=== PATIENT | male | born 1960 | race African-American/Black ===

== ENCOUNTER 2018-08-17 23:39 | Inpatient (IN) | payer SELFPAY ==
--- NOTE | 2018-08-18 00:53 | RADIOLOGY REPORT (SQ) ---
EXAM DESCRIPTION: XR HIP 2 OR MORE VIEWS COMPLETED DATE/TME: 08/18/2018 00:20 CLINICAL HISTORY: 57 years, Male, INJURY COMPARISON: None. NUMBER OF VIEWS: 2 TECHNIQUE: AP pelvis and single view left hip LIMITATIONS: None. FINDINGS: Comminuted mildly displaced intertrochanteric fracture deformity of the left hip. No dislocation. Mild varus angulation. IMPRESSION: Comminuted, mildly displaced and angulated intertrochanteric fracture of the left hip copyright 2010 [employer]- All Rights Reserved
--- NOTE | 2018-08-18 00:54 | RADIOLOGY REPORT (SQ) ---
EXAM DESCRIPTION: XR RIBS UNILATERAL WITH CHEST COMPLETED DATE/TME: 08/18/2018 00:00 CLINICAL HISTORY: 57 years, Male, INJURY COMPARISON: None. NUMBER OF VIEWS: 5 TECHNIQUE: AP chest and 4 views of the left ribs LIMITATIONS: None. FINDINGS: Heart size is normal. Osteopenia. Lungs are hyperinflated but clear. No pneumothorax. Old fracture deformities of the posterior left sixth and seventh ribs. Negative for acute left rib fracture. Soft tissues are unremarkable. IMPRESSION: No acute left rib fracture. Osteopenia. Remote fractures of the posterior left sixth and seventh ribs. Lungs are hyperinflated but clear copyright 2010 [employer] All Rights Reserved
[2018-08-18] MEDS ORDERED: HYDROMORPHONE HCL INJ/PF 2 MG/ML AMPULE IV ONE ×2 (01:00→02:05)
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
[2018-08-18 01:10] LABS: ABSOLUTE LYMPHOCYTES (AUTO) 0.8 10^3/uL (0.5-4.7); ABSOLUTE MONOCYTES (AUTO) 0.3 10^3/uL (0.1-1.4); EOSINOPHILS % (AUTO) 0.1 % (0-6); PLATELET COUNT 283 10^3/uL (150-450); RED CELL DISTRIBUTION WIDTH 12.9 % (11.5-14.0); TOTAL CELLS COUNTED % (AUTO) 100 %
[2018-08-18 01:12] LABS: ALANINE AMINOTRANSFERASE 17 U/L (21-72); ALKALINE PHOSPHATASE 65 U/L (38-126); ANION GAP 10 (5-19); ASPARTATE AMINO TRANSFERASE 41 U/L (17-59); BILIRUBIN,DIRECT 0.2 mg/dL (0.0-0.4); BILIRUBIN,TOTAL 0.4 mg/dL (0.2-1.3); BLOOD UREA NITROGEN 7 mg/dL (7-20); CALCIUM 8.9 mg/dL (8.4-10.2); CARBON DIOXIDE 22 mmol/L (22-30); CHLORIDE 105 mmol/L (98-107); GLUCOSE 106 mg/dL (75-110); POTASSIUM 4.2 mmol/L (3.6-5.0); SODIUM 136.8 mmol/L (137-145); TOTAL PROTEIN 7.5 g/dL (6.3-8.2)
[2018-08-18 01:20] LABS: ABSOLUTE NEUT (AUTO) 5.3 10^3/uL (1.7-8.2); BASOPHILS % (AUTO) 0.5 % (0-2); HEMATOCRIT 36.8 % (37.9-51.0); HEMOGLOBIN 12.6 g/dL (13.5-17.0); LYMPHOCYTES % (AUTO) 12.9 % (13-45); MEAN CORPUSCULAR HEMOGLOBIN 32.1 pg (27.0-33.4); MEAN CORPUSCULAR HGB CONC 34.3 g/dL (32.0-36.0); MEAN CORPUSCULAR VOLUME 94 fl (80-97); MONOCYTES % (AUTO) 4.4 % (3-13); RED BLOOD COUNT 3.94 10^6/uL (4.35-5.55); SEGMENTED NEUTROPHILS % (AUTO) 82.1 % (42-78); WHITE BLOOD COUNT 6.4 10^3/uL (4.0-10.5)
[2018-08-18 01:26] LABS: INTERNATIONAL RATION (INR) 0.96; PARTIAL THROMBOPLASTIN TIME 28.5 SEC (23.5-35.8); PROTHROMBIN TIME 13.3 SEC (11.4-15.4)
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
[2018-08-18] MEDS ORDERED: RINGERS SOLUTION,LACTATED 1,000 ML IV ONE (03:53)
[2018-08-18] MEDS: MORPHINE SULFATE 10 MG/ML INJ IV PRN ×4 (07:36→22:36)
[2018-08-18] MEDS ORDERED: DEXTROSE 40% GEL 15 GM TUBE PO PRN ×2 (08:33)
[2018-08-18] MEDS ORDERED: GLUCAGON,HUMAN RECOMB 1 MG INJ SUBCUT PRN (08:33)
[2018-08-18] MEDS ORDERED: DEXTROSE 50%-WATER 25 GM/50 ML DISP.SYRIN IV PRN ×2 (08:33)
[2018-08-18] MEDS ORDERED: ONDANSETRON 4 MG TAB.RAPDIS PO PRN (08:44)
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
[2018-08-18] MEDS: LORAZEPAM 1 MG TABLET (TAPER DOSING) PO SCH ×3 (10:12→22:36)
[2018-08-18] MEDS: FOLIC ACID 1 MG TABLET PO SCH (10:13)
[2018-08-18] MEDS: RINGERS SOLUTION,LACTATED 1,000 ML IV PRN (14:46)
[2018-08-18] MEDS: IBUPROFEN 800 MG in NORMAL SALINE 250 ML IV SCH ×2 (15:00→22:27)
[2018-08-18] MEDS: NORMAL SALINE 1000 ML 1,000 ML with POTASSIUM CHLORIDE 20 MEQ, MAGNESIUM SULFATE 8 MEQ,... IV SCH ×5 (17:51)
--- NOTE | 2018-08-19 00:57 | EKG REPORT ---
SEVERITY:- ABNORMAL ECG - SINUS RHYTHM ST ELEVATION, CONSIDER EARLY REPOLARISATION CHANGES : Confirmed by: Genie Zendejas MD 19-Aug-2018 00:56:21
[2018-08-19] MEDS: MORPHINE SULFATE 10 MG/ML INJ IV PRN ×3 (01:44→17:57)
[2018-08-19] MEDS: RINGERS SOLUTION,LACTATED 1,000 ML IV PRN ×2 (01:50→10:39)
[2018-08-19] MEDS ORDERED: TRANEXAMIC ACID INJ/PF 1,000 MG/10 ML SDV IV PRN (05:00)
[2018-08-19] MEDS ORDERED: CEFAZOLIN 2 GM/D5W RTU 2 GM/50 ML RTUPB IV PRN (05:00)
[2018-08-19] MEDS: IBUPROFEN 800 MG in NORMAL SALINE 250 ML IV SCH ×3 (05:40→23:53)
[2018-08-19] MEDS: LORAZEPAM 1 MG TABLET (TAPER DOSING) PO SCH ×3 (05:41→19:07)
--- NOTE | 2018-08-19 07:21 | PDOC PROGRESS REPORT ---
Subjective Progress Note for:: 08/19/18 Reason For Visit: FRACTURE OF HIP Left intratrochanteric femur fracture Physical Exam Vital Signs: Temp Pulse Resp BP Pulse Ox 37.1 C 49 L 17 123/84 100 08/18/18 23:31 08/18/18 23:31 08/18/18 23:31 08/18/18 23:31 08/18/18 23:31 Intake & Output 08/18/18 08/19/18 08/20/18 06:59 06:59 06:59 Intake Total 0 2989 Output Total 0 900 Balance 0 2089 Weight 68 kg 65.6 kg General appearance: PRESENT: mild distress, thin Head exam: PRESENT: normocephalic Respiratory exam: PRESENT: unlabored Cardiovascular exam: PRESENT: RRR Pulses: PRESENT: +1 pedal pulses bilateral Vascular exam: PRESENT: normal capillary refill GI/Abdominal exam: PRESENT: soft Rectal exam: PRESENT: deferred Musculoskeletal exam: PRESENT: other - Neurovascular examination of the left foot is intact. Neurological exam: PRESENT: alert, awake, oriented to person, oriented to place , oriented to time, oriented to situation. ABSENT: motor sensory deficit Psychiatric exam: PRESENT: appropriate affect, normal mood. ABSENT: homicidal ideation, suicidal ideation Skin exam: PRESENT: dry, intact, warm. ABSENT: cyanosis, rash Results Impressions: Ribs w/Chest X-Ray 08/18/18 00:00 IMPRESSION: No acute left rib fracture. Osteopenia. Remote fractures of the posterior left sixth and seventh ribs. Lungs are hyperinflated but clear copyright 2010 [employer]- All Rights Reserved Hip X-Ray 08/18/18 00:20 IMPRESSION: Comminuted, mildly displaced and angulated intertrochanteric fracture of the left hip copyright 2010 [employer]- All Rights Reserved Femur X-Ray 08/18/18 00:58 IMPRESSION: Intertrochanteric fracture deformity. Osteopenia copyright 2010 [employer]- All Rights Reserved Lumbar Spine CT 08/18/18 00:58 IMPRESSION: Minor degenerative change, at L4-5 and L5-S1. TECHNICAL DOCUMENTATION: Quality ID # 436: Final reports with documentation of one or more dose reduction techniques (e.g., Automated exposure control, adjustment of the mA and/or kV according to patient size, use of iterative reconstruction technique) copyright 2010 [employer]- All Rights Reserved Status: Imported from PACS Assessment & Plan - Diagnosis (1) Intertrochanteric fracture of left femur Qualifiers: Encounter type: initial encounter Fracture type: closed Fracture alignment: displaced Qualified Code(s): S72.142A - Displaced intertrochanteric fracture of left femur, initial encounter for closed fracture Is this a current diagnosis for this admission?: Yes Plan: Plan for an open reduction internal fixation under choice anesthesia today. - Time Time Spent with patient: 15-24 minutes Anticipated discharge: Home with Homehealth Within: within 24 hours
[2018-08-19] MEDS: FOLIC ACID 1 MG TABLET PO SCH (10:36)
[2018-08-19] MEDS ORDERED: FENTANYL CITRATE INJ/PF 100 MCG/2 ML AMPUL ONE ×2 (12:27→14:32)
[2018-08-19] MEDS ORDERED: MIDAZOLAM 2 MG/2 ML INJ ONE (12:27)
[2018-08-19] MEDS ORDERED: PROPOFOL INJ 200 MG/20 ML VIAL IV ONE (12:27)
[2018-08-19] MEDS ORDERED: ACETAMINOPHEN 0 MG/0 ML RTUPB IV ONE (12:27)
[2018-08-19] MEDS ORDERED: HYDROMORPHONE HCL INJ/PF 2 MG/ML AMPULE ONE (12:27)
[2018-08-19] MEDS ORDERED: CEFAZOLIN INJ 1 GM VIAL ONE (12:59)
[2018-08-19] MEDS ORDERED: KETAMINE HCL INJ 500 MG/10 ML VIAL ONE (13:14)
[2018-08-19] MEDS ORDERED: EPHEDRINE SULFATE INJ 50 MG/1 ML AMPULE ONE (13:38)
[2018-08-19] MEDS ORDERED: PROMETHAZINE HCL INJ 25 MG/1 ML VIAL IV PRN (13:59)
[2018-08-19] MEDS ORDERED: DIPHENHYDRAMINE HCL 50 MG/ML VIAL IV PRN (13:59)
[2018-08-19] MEDS ORDERED: FENTANYL CITRATE INJ/PF 100 MCG/2 ML AMPUL IV PRN ×2 (13:59)
--- NOTE | 2018-08-19 14:03 | Operative Report ---
Operative Report DATE OF SURGERY: 08/19/18 PREOPERATIVE DIAGNOSIS: Left intratrochanteric femur fracture OPERATION: Open reduction internal fixation left intratrochanteric femur fracture SURGEON: PATSY TERRY ANESTHESIA: Spinal ESTIMATED BLOOD LOSS: 100 PROCEDURE: With the patient supine on the fracture table the left lower extremity hindquarter prepped and draped in a sterile fashion. Under fluoroscopic guidance a pin is placed percutaneously down through the greater trochanter into the proximal femoral metadiaphysis. A combined reamer was then used to fashion a cortical opening. These are removed and a ball-tipped guide betsey was placed down the femur. Femoral length is measured to be 440 mm. Subsequently a Saundra gamma 3 nail, 125 degrees x 11 mm x 420 mm is advanced over the ball- tipped guide betsey for approximate for a proximal interlock that is central in the femoral neck. Subsequently 95 mm proximal interlock is placed. A single 47.5 mm distal interlock is placed. The wounds irrigated. The wounds are closed using Vicryl followed by an norman. A sterile compressive dressing is applied and patient's return to PACU in satisfactory condition.
[2018-08-19] MEDS ORDERED: ONDANSETRON 4 MG TAB.RAPDIS SL PRN (14:28)
--- NOTE | 2018-08-19 15:57 | RADIOLOGY REPORT (SQ) ---
EXAM DESCRIPTION: HIP IN OPERATING RM COMPLETED DATE/TIME: 08/19/2018 3:32 pm REASON FOR STUDY: ORIF LEFT HIP ASST WITH FLUORO IN OR COMPARISON: None. FLUOROSCOPY TIME: 0.7 minutes 4 images saved to PACS. TECHNIQUE: Intra-operative images acquired during surgical procedure to evaluate progress. NUMBER OF IMAGES: 4 images LIMITATIONS: None. FINDINGS: Fluoroscopic images were obtained during open reduction and internal fixation of the left hip. Orthopedic nail and intramedullary betsey are identified in position. Please refer to the surgeon 's operative report for additional information. IMPRESSION: IMAGE(S) OBTAINED DURING PROCEDURE. COMMENT: Quality ID 145: Final reports for procedures using fluoroscopy that document radiation exp osure indices, or exposure time and number of fluorographic images (if radiation exposure indices are not available) Please consult full operative report of the attending physician for description of the procedure. TECHNICAL DOCUMENTATION: JOB ID: [id number] [employer]- All Rights Reserved Reading location - IP/workstation name: [email or web address]
--- NOTE | 2018-08-19 15:58 | RADIOLOGY REPORT (SQ) ---
EXAM DESCRIPTION: NO CHG FLUORO COMPLETE DATE/TIME: 08/19/2018 3:32 pm REASON FOR STUDY: ORIF LEFT HIP ASST WITH FLUORO IN OR FINDINGS: Please see combined report for performance of procedure and radiologic supervision and int erpretation. IMPRESSION: Please see combined report for performance of procedure and radiologic supervision and i nterpretation. Reading location - IP/workstation name: [email or web address]
[2018-08-19] MEDS: NORMAL SALINE 1000 ML 1,000 ML with POTASSIUM CHLORIDE 20 MEQ, MAGNESIUM SULFATE 8 MEQ,... IV SCH ×5 (18:02)
[2018-08-19] MEDS: OXYCODONE HCL IR 5 MG TABLET PO PRN (18:21)
[2018-08-19] MEDS ORDERED: LORAZEPAM 1 MG TABLET PO PRN (18:57)
[2018-08-19] MEDS: CEFAZOLIN 2 GM/D5W RTU 2 GM/50 ML RTUPB IV SCH (23:52)
[2018-08-20] MEDS: MORPHINE SULFATE 10 MG/ML INJ IV PRN ×3 (00:01→13:28)
[2018-08-20] MEDS: IBUPROFEN 800 MG in NORMAL SALINE 250 ML IV SCH ×3 (06:20→23:18)
[2018-08-20] MEDS: CEFAZOLIN 2 GM/D5W RTU 2 GM/50 ML RTUPB IV SCH (06:21)
[2018-08-20 07:18] LABS: HEMATOCRIT 30.8 % (37.9-51.0); HEMOGLOBIN 10.7 g/dL (13.5-17.0); MEAN CORPUSCULAR HEMOGLOBIN 32.5 pg (27.0-33.4); MEAN CORPUSCULAR HGB CONC 34.9 g/dL (32.0-36.0); MEAN CORPUSCULAR VOLUME 93 fl (80-97); PLATELET COUNT 188 10^3/uL (150-450); RED BLOOD COUNT 3.31 10^6/uL (4.35-5.55); RED CELL DISTRIBUTION WIDTH 12.7 % (11.5-14.0); WHITE BLOOD COUNT 8.2 10^3/uL (4.0-10.5)
--- NOTE | 2018-08-20 07:31 | PDOC PROGRESS REPORT ---
Subjective Progress Note for:: 08/20/18 Reason For Visit: FRACTURE OF HIP 57-year-old black male postop day 1 status post open reduction internal fixation of the left intratrochanteric femur fracture. Overnight issues included behavioral issues and potential withdrawal symptoms. Patient's Ativan was doubled. Physical Exam Vital Signs: Temp Pulse Resp BP Pulse Ox 37.4 C 81 17 141/96 H 100 08/20/18 00:02 08/20/18 00:02 08/20/18 00:02 08/20/18 00:02 08/20/18 00:02 Intake & Output 08/19/18 08/20/18 08/21/18 06:59 06:59 06:59 Intake Total 2989 2250 Output Total 900 1320 Balance 2089 930 Weight 65.6 kg 60 kg General appearance: PRESENT: disheveled, mild distress, thin Head exam: PRESENT: normocephalic Respiratory exam: PRESENT: unlabored Cardiovascular exam: PRESENT: RRR Pulses: PRESENT: +1 pedal pulses bilateral Vascular exam: PRESENT: normal capillary refill GI/Abdominal exam: PRESENT: soft Rectal exam: PRESENT: deferred Extremities exam: PRESENT: other - Left proximal hip dressing is changed this morning. Wounds are well approximated without ongoing drainage. Leg lengths are equal. Distal neurovascular examination is intact. Neurological exam: PRESENT: awake. ABSENT: motor sensory deficit Psychiatric exam: PRESENT: agitated, unusual affect Skin exam: PRESENT: dry, intact, warm. ABSENT: cyanosis, rash Results Laboratory Results: 08/20/18 07:06 08/20/18 07:06 WBC 8.2 RBC 3.31 L Hgb 10.7 L Hct 30.8 L MCV 93 MCH 32.5 MCHC 34.9 RDW 12.7 Plt Count 188 Impressions: Ribs w/Chest X-Ray 08/18/18 00:00 IMPRESSION: No acute left rib fracture. Osteopenia. Remote fractures of the posterior left sixth and seventh ribs. Lungs are hyperinflated but clear copyright 2010 [email or web address]- All Rights Reserved Femur X-Ray 08/18/18 00:58 IMPRESSION: Intertrochanteric fracture deformity. Osteopenia copyright 2010 [email or web address]- All Rights Reserved Lumbar Spine CT 08/18/18 00:58 IMPRESSION: Minor degenerative change, at L4-5 and L5-S1. TECHNICAL DOCUMENTATION: Quality ID # 436: Final reports with documentation of one or more dose reduction techniques (e.g., Automated exposure control, adjustment of the mA and/or kV according to patient size, use of iterative reconstruction technique) copyright 2011 [email or web address]- All Rights Reserved Fluoroscopy 08/19/18 00:00 IMPRESSION: Please see combined report for performance of procedure and radiologic supervision and interpretation. Hip X-Ray 08/19/18 00:00 IMPRESSION: IMAGE(S) OBTAINED DURING PROCEDURE. Status: Imported from PACS Assessment & Plan - Diagnosis (1) Intertrochanteric fracture of left femur Qualifiers: Encounter type: initial encounter Fracture type: closed Fracture alignment: displaced Qualified Code(s): S72.142A - Displaced intertrochanteric fracture of left femur, initial encounter for closed fracture Is this a current diagnosis for this admission?: Yes Plan: 57-year-old black male now postop day 1 status post ORIF of the left intratrochanteric femur fracture with potentially superimposed withdrawal symptoms. Plan will be to mobilize with physical therapy and weightbearing as tolerated basis. Continue withdrawal prophylaxis with Ativan. - Time Time Spent with patient: 15-24 minutes Anticipated discharge: Home with Homehealth Within: Other
[2018-08-20 07:45] LABS: ANION GAP 6 (5-19); BLOOD UREA NITROGEN 5 mg/dL (7-20); CALCIUM 8.9 mg/dL (8.4-10.2); CARBON DIOXIDE 25 mmol/L (22-30); CHLORIDE 104 mmol/L (98-107); GLUCOSE 108 mg/dL (75-110); POTASSIUM 3.8 mmol/L (3.6-5.0); SODIUM 135.1 mmol/L (137-145)
[2018-08-20] MEDS: LORAZEPAM 1 MG TABLET (TAPER DOSING) PO SCH ×4 (09:27→23:52)
[2018-08-20] MEDS: FOLIC ACID 1 MG TABLET PO SCH (09:38)
[2018-08-20] MEDS: ASPIRIN 81 MG TABLET, CHEWABLE PO SCH (09:38)
[2018-08-20] MEDS: OXYCODONE HCL IR 5 MG TABLET PO PRN (11:37)
[2018-08-20] MEDS: RINGERS SOLUTION,LACTATED 1,000 ML IV PRN (13:35)
[2018-08-20] MEDS: LORAZEPAM INJ 2 MG/1 ML VIAL IV PRN ×2 (14:25→18:59)
[2018-08-20] MEDS: NORMAL SALINE 1000 ML 1,000 ML with POTASSIUM CHLORIDE 20 MEQ, MAGNESIUM SULFATE 8 MEQ,... IV SCH ×5 (18:53)
[2018-08-21] MEDS: RINGERS SOLUTION,LACTATED 1,000 ML IV PRN (03:45)
[2018-08-21] MEDS: LORAZEPAM 1 MG TABLET (TAPER DOSING) PO SCH ×2 (03:50→11:10)
--- NOTE | 2018-08-21 07:13 | PDOC PROGRESS REPORT ---
Subjective Progress Note for:: 08/21/18 Reason For Visit: FRACTURE OF HIP Physical Exam Vital Signs: Temp Pulse Resp BP Pulse Ox 37.1 C 68 17 138/83 H 100 08/20/18 23:27 08/20/18 23:27 08/20/18 23:27 08/20/18 23:27 08/20/18 23:27 Intake & Output 08/20/18 08/21/18 08/22/18 06:59 06:59 06:59 Intake Total 3273 4123 Output Total 1320 1395 Balance 1953 2728 Weight 60 kg 59.5 kg Physical Exam: Patient with continued mental status changes. Respiratory exam: PRESENT: unlabored Cardiovascular exam: PRESENT: RRR Extremities exam: PRESENT: other - Left lower extremity dressing clean dry and intact. Leg lengths are equal. Results Laboratory Results: 08/20/18 07:06 08/20/18 07:06 08/20/18 08/20/18 07:06 07:06 WBC 8.2 RBC 3.31 L Hgb 10.7 L Hct 30.8 L MCV 93 MCH 32.5 MCHC 34.9 RDW 12.7 Plt Count 188 Sodium 135.1 L Potassium 3.8 Chloride 104 Carbon Dioxide 25 Anion Gap 6 BUN 5 L Creatinine 0.61 Est GFR ( Amer) > 60 Est GFR (Non-Af Amer) > 60 Glucose 108 Calcium 8.9 Impressions: Ribs w/Chest X-Ray 08/18/18 00:00 IMPRESSION: No acute left rib fracture. Osteopenia. Remote fractures of the posterior left sixth and seventh ribs. Lungs are hyperinflated but clear copyright 2010 [employer]- All Rights Reserved Femur X-Ray 08/18/18 00:58 IMPRESSION: Intertrochanteric fracture deformity. Osteopenia copyright 2010 [employer]- All Rights Reserved Lumbar Spine CT 08/18/18 00:58 IMPRESSION: Minor degenerative change, at L4-5 and L5-S1. TECHNICAL DOCUMENTATION: Quality ID # 436: Final reports with documentation of one or more dose reduction techniques (e.g., Automated exposure control, adjustment of the mA and/or kV according to patient size, use of iterative reconstruction technique) copyright 2011 [employer]- All Rights Reserved Fluoroscopy 08/19/18 00:00 IMPRESSION: Please see combined report for performance of procedure and radiologic supervision and interpretation. Hip X-Ray 08/19/18 00:00 IMPRESSION: IMAGE(S) OBTAINED DURING PROCEDURE. Status: Imported from PACS Assessment & Plan - Diagnosis (1) Intertrochanteric fracture of left femur Qualifiers: Encounter type: initial encounter Fracture type: closed Fracture alignment: displaced Qualified Code(s): S72.142A - Displaced intertrochanteric fracture of left femur, initial encounter for closed fracture Is this a current diagnosis for this admission?: Yes Plan: Mobilize with physical therapy and weightbearing as tolerated basis as mental status permits. - Time Time Spent with patient: 15-24 minutes Anticipated discharge: Other Within: Other
[2018-08-21] MEDS: IBUPROFEN 800 MG in NORMAL SALINE 250 ML IV SCH ×3 (07:28→21:34)
[2018-08-21] MEDS: ASPIRIN 81 MG TABLET, CHEWABLE PO SCH (09:38)
[2018-08-21] MEDS: FOLIC ACID 1 MG TABLET PO SCH (09:38)
[2018-08-21] MEDS: OXYCODONE HCL IR 5 MG TABLET PO PRN (09:38)
[2018-08-21] MEDS ORDERED: NICOTINE 21 MG/24 HR PATCH.TD24 ONE (12:11)
[2018-08-21] MEDS: NICOTINE 21 MG/24 HR PATCH.TD24 TD SCH (12:13)
[2018-08-21] MEDS: ACETAMINOPHEN 325 MG TABLET PO PRN (12:14)
[2018-08-21] MEDS: NORMAL SALINE 1000 ML 1,000 ML with POTASSIUM CHLORIDE 20 MEQ, MAGNESIUM SULFATE 8 MEQ,... IV SCH ×5 (17:09)
[2018-08-21] MEDS: LORAZEPAM INJ 2 MG/1 ML VIAL IV PRN (17:09)
[2018-08-21] MEDS: MORPHINE SULFATE 10 MG/ML INJ IV PRN (20:37)
[2018-08-22] MEDS: MORPHINE SULFATE 10 MG/ML INJ IV PRN ×3 (00:09→22:38)
[2018-08-22] MEDS: RINGERS SOLUTION,LACTATED 1,000 ML IV PRN ×2 (00:11→12:24)
[2018-08-22] MEDS: LORAZEPAM 1 MG TABLET (TAPER DOSING) PO SCH ×3 (00:29→17:02)
[2018-08-22] MEDS: ACETAMINOPHEN 325 MG TABLET PO PRN (03:44)
[2018-08-22] MEDS: IBUPROFEN 800 MG in NORMAL SALINE 250 ML IV SCH ×3 (06:50→22:37)
--- NOTE | 2018-08-22 07:08 | PDOC PROGRESS REPORT ---
Subjective Progress Note for:: 08/22/18 Reason For Visit: FRACTURE OF HIP 57-year-old black male now postop day 3 status post open reduction internal fixation of a left proximal femur fracture. Postoperative course has been complicated by mental status changes consistent with alcohol withdrawal. Physical Exam Vital Signs: Temp Pulse Resp BP Pulse Ox 37.1 C 64 20 115/64 96 08/22/18 00:18 08/22/18 00:18 08/21/18 21:00 08/22/18 00:18 08/22/18 00:18 Intake & Output 08/21/18 08/22/18 08/23/18 06:59 06:59 06:59 Intake Total 4123 3259 Output Total 1395 1250 Balance 2728 2008 Weight 59.5 kg 58.8 kg General appearance: PRESENT: no acute distress Respiratory exam: PRESENT: unlabored Cardiovascular exam: PRESENT: RRR Pulses: PRESENT: +1 pedal pulses bilateral Extremities exam: PRESENT: other - Left lower extremity dressings clean dry and intact. Leg lengths are equal. Results Laboratory Results: 08/20/18 07:06 08/20/18 07:06 Impressions: Ribs w/Chest X-Ray 08/18/18 00:00 IMPRESSION: No acute left rib fracture. Osteopenia. Remote fractures of the posterior left sixth and seventh ribs. Lungs are hyperinflated but clear copyright 2010 [employer]- All Rights Reserved Femur X-Ray 08/18/18 00:58 IMPRESSION: Intertrochanteric fracture deformity. Osteopenia copyright 2010 [employer]- All Rights Reserved Lumbar Spine CT 08/18/18 00:58 IMPRESSION: Minor degenerative change, at L4-5 and L5-S1. TECHNICAL DOCUMENTATION: Quality ID # 436: Final reports with documentation of one or more dose reduction techniques (e.g., Automated exposure control, adjustment of the mA and/or kV according to patient size, use of iterative reconstruction technique) copyright 2011 [employer]- All Rights Reserved Fluoroscopy 08/19/18 00:00 IMPRESSION: Please see combined report for performance of procedure and radiologic supervision and interpretation. Hip X-Ray 08/19/18 00:00 IMPRESSION: IMAGE(S) OBTAINED DURING PROCEDURE. Status: Imported from PACS Assessment & Plan - Diagnosis (1) Intertrochanteric fracture of left femur Qualifiers: Encounter type: initial encounter Fracture type: closed Fracture alignment: displaced Qualified Code(s): S72.142A - Displaced intertrochanteric fracture of left femur, initial encounter for closed fracture Is this a current diagnosis for this admission?: Yes Plan: Limited progress with physical therapy. No clear improvement in his overall men kevin status at this point. - Time Time Spent with patient: 15-24 minutes Anticipated discharge: Home with Homehealth Within: Other
[2018-08-22] MEDS: NICOTINE 21 MG/24 HR PATCH.TD24 TD SCH (12:22)
[2018-08-22] MEDS: FOLIC ACID 1 MG TABLET PO SCH (12:23)
[2018-08-22] MEDS: OXYCODONE HCL IR 5 MG TABLET PO PRN (12:23)
[2018-08-22] MEDS: ASPIRIN 81 MG TABLET, CHEWABLE PO SCH (12:23)
[2018-08-22] MEDS: NORMAL SALINE 1000 ML 1,000 ML with POTASSIUM CHLORIDE 20 MEQ, MAGNESIUM SULFATE 8 MEQ,... IV SCH ×5 (17:03)
[2018-08-23] MEDS: MORPHINE SULFATE 10 MG/ML INJ IV PRN (02:09)
[2018-08-23] MEDS: LORAZEPAM 1 MG TABLET (TAPER DOSING) PO SCH (05:29)
[2018-08-23] MEDS: IBUPROFEN 800 MG in NORMAL SALINE 250 ML IV SCH (06:02)
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
[2018-08-23] MEDS: OXYCODONE HCL IR 5 MG TABLET PO PRN (07:56)
[2018-08-23] MEDS: FOLIC ACID 1 MG TABLET PO SCH (10:06)
[2018-08-23] MEDS: ASPIRIN 81 MG TABLET, CHEWABLE PO SCH (10:06)
[2018-08-23 11:36] VITALS: BP 131/86
== END 2018-08-23 12:33 | disposition home or self-care (01) | DRG 481 ==
LOC: ER 23:39 → EH 08-18 03:37 → 4S 08-18 05:40
PROVIDERS: ADMIT Orthopaedic Surgery; ATTEND Orthopaedic Surgery
PROC: 0QS706Z Reposition Left Upper Femur with Intramedullary Internal Fixation Device, Open Approach (ICD-10-PCS; principal; 2018-08-19 13:30)
DX: S72.142A Displaced intertrochanteric fracture of left femur, initial encounter for closed fracture (principal); S22.42XA Multiple fractures of ribs, left side, initial encounter for closed fracture; F10.239 Alcohol dependence with withdrawal, unspecified; F17.210 Nicotine dependence, cigarettes, uncomplicated; Y90.9 Presence of alcohol in blood, level not specified; V18.0XXA Pedal cycle driver injured in noncollision transport accident in nontraffic accident, initial encounter; Y93.55 Activity, bike riding; Y92.89 Other specified places as the place of occurrence of the external cause
CPT/HCPCS: 01230; 36415; 72131; 80048; 80053; 85025; 85027; 85610; 85730; 93005; 93010; 96374; 96376; 99285; C1713; C1769; J0131; J0690; J1170; J1741; J2060; J2250; J2270; J2704; J3010; J3411; J3475; J3480; J3490; J7030; J7050; J7120; S0119

== ENCOUNTER 2020-03-01 08:57 | Day surgery (SDC) | payer MEDICAID ==
[2020-02-27 09:57] LABS: HEMATOCRIT 37.8 % (37.9-51.0); HEMOGLOBIN 12.9 g/dL (13.5-17.0); MEAN CORPUSCULAR HEMOGLOBIN 34.1 pg (27.0-33.4); MEAN CORPUSCULAR HGB CONC 34.2 g/dL (32.0-36.0); MEAN CORPUSCULAR VOLUME 100 fl (80-97); PLATELET COUNT 190 10^3/uL (150-450); RED BLOOD COUNT 3.78 10^6/uL (4.35-5.55); RED CELL DISTRIBUTION WIDTH 14.4 % (11.5-14.0); WHITE BLOOD COUNT 3.8 10^3/uL (4.0-10.5)
[2020-02-27 10:05] LABS: INTERNATIONAL RATION (INR) 1.08; PARTIAL THROMBOPLASTIN TIME 32.8 SEC (23.5-35.8)
[2020-02-27 10:23] LABS: ALBUMIN 3.6 g/dL (3.5-5.0); ALKALINE PHOSPHATASE 124 U/L (38-126); ANION GAP 7 (5-19); ASPARTATE AMINO TRANSFERASE 125 U/L (17-59); BILIRUBIN,TOTAL 0.5 mg/dL (0.2-1.3); BLOOD UREA NITROGEN 4 mg/dL (7-20); CALCIUM 9.1 mg/dL (8.4-10.2); CARBON DIOXIDE 23 mmol/L (22-30); CHLORIDE 107 mmol/L (98-107); GLUCOSE 87 mg/dL (75-110); POTASSIUM 4.5 mmol/L (3.6-5.0); TOTAL PROTEIN 7.9 g/dL (6.3-8.2)
--- NOTE | 2020-02-27 12:32 | RADIOLOGY REPORT (SQ) ---
EXAM DESCRIPTION: CHEST PA/LATERAL IMAGES COMPLETED DATE/TIME: 02/27/2020 12:02 pm REASON FOR STUDY: PRE-OP COMPARISON: 2009 EXAM PARAMETERS: NUMBER OF VIEWS: two views TECHNIQUE: Digital Frontal and Lateral radiographic views of the chest acquired. RADIATION DOSE: NA LIMITATIONS: none FINDINGS: LUNGS AND PLEURA: No opacities, masses or pneumothorax. No pleural effusion. MEDIASTINUM AND HILAR STRUCTURES: No masses or contour abnormalities. HEART AND VASCULAR STRUCTURES: Heart normal size. No evidence for failure. BONES: No acute findings. HARDWARE: None in the chest. OTHER: No other significant finding. IMPRESSION: NO SIGNIFICANT RADIOGRAPHIC FINDING IN THE CHEST. TECHNICAL DOCUMENTATION: JOB ID: [id number] 2010 [employer]- All Rights Reserved Reading location - IP/workstation name: [email or web address]
--- NOTE | 2020-02-27 19:35 | EKG REPORT ---
SEVERITY:- ABNORMAL ECG - SINUS RHYTHM NONSPECIFIC T ABNORMALITIES, ANT-LAT LEADS : Confirmed by: Abel Persaud 27-Feb-2020 19:34:34
[~2020-03-01 08:57] MED LIST: CEFOXITIN SODIUM 2 GM in DEXTROSE 5%-WATER 100 ML IV PRN; IBUPROFEN 800 MG in NORMAL SALINE 250 ML IV PRN; LACTATED RINGERS 1000 ML IV PRN; LIDOCAINE 0.5% INJ-PF (5 MG/ML) 50 ML SDV SUBCUT PRN
[2020-03-01] MEDS ORDERED: MIDAZOLAM 2 MG/2 ML INJ ONE (10:08)
[2020-03-01] MEDS ORDERED: FENTANYL CITRATE INJ/PF 100 MCG/2 ML AMPUL ONE ×2 (10:08→11:54)
[2020-03-01] MEDS ORDERED: PROPOFOL INJ 200 MG/20 ML VIAL IV ONE (10:08)
[2020-03-01] MEDS ORDERED: BUPIVACAINE HCL 0.25 % INJ/PF (2.5 MG/1 ML) 30 ML VIAL ONE (10:14)
[2020-03-01] MEDS ORDERED: DEXAMETHASONE SOD PHOSPHATE INJ 4 MG/1 ML VIAL ONE (10:24)
[2020-03-01] MEDS ORDERED: ONDANSETRON HCL INJ/PF 4 MG/2 ML SDV ONE (10:24)
[2020-03-01] MEDS ORDERED: DIPHENHYDRAMINE HCL 50 MG/ML VIAL IV PRN (10:33)
[2020-03-01] MEDS ORDERED: FENTANYL CITRATE INJ/PF 100 MCG/2 ML AMPUL IV PRN ×3 (10:33)
[2020-03-01] MEDS ORDERED: ONDANSETRON HCL INJ/PF 4 MG/2 ML SDV IV PRN (10:33)
[2020-03-01] MEDS ORDERED: MORPHINE SULFATE 10 MG/ML INJ IV PRN (10:33)
[2020-03-01] MEDS ORDERED: OXYCODONE-ACETAMINOPHEN 5-325 MG TABLET PO PRN ×2 (10:33)
[2020-03-01] MEDS ORDERED: MEPERIDINE HCL/PF INJ 25 MG/1 ML DISP.SYRIN IV PRN (10:33)
--- NOTE | 2020-03-01 11:58 | Operative Report ---
Nonrecallable Operative Report DATE OF SURGERY: 03/01/20 PREOPERATIVE DIAGNOSIS: Symptomatic cholelithiasis POSTOPERATIVE DIAGNOSIS: Same as above OPERATION: Laparoscopic cholecystectomy SURGEON: ZECHARIAH MINER 1ST COMPUTER PROCESSING SCHEDULER: KORIN LANDRY ANESTHESIA: GA TISSUE REMOVED OR ALTERED: Gallbladder COMPLICATIONS: None apparent ESTIMATED BLOOD LOSS: Minimal PROCEDURE: Drain/implants: None. Procedure in detail: After informed consent was obtained, the patient was brought to the operating room and laid in the supine position. The area of the abdomen was prepped and draped in a normal sterile fashion. A curvilinear supraumbilical incision was created with a 15 blade scalpel. There was a small umbilical hernia defect, that was widened in order to access the abdomen. This was done sharply. The balloon trocar was inserted through the widened umbilical hernia defect. Gas insufflation was attached, and pneumoperitoneum was achieved. A subxiphoid 5 mm port was then placed under direct laparoscopic visualization. 2 more 5 mm ports were placed in the right upper quadrant in similar fashion. Atraumatic graspers were placed through the 5 mm ports. The gallbladder was retracted cephalad and laterally. Dissection was begun in the triangle of Calot. The cystic duct and cystic artery were fully visualized and skeletonized, seeing the liver through the triangle. Once the critical view of safety was obtained, the cystic duct and cystic artery were clipped and cut with laparoscopic instruments. The gallbladder was removed from the liver using Bovie electrocautery. Upon gallbladder, the posterior branch of the cystic artery was identified. This was clipped and cut. The remainder of the gallbladder was then removed from the liver using electrocautery. The gallbladder was then placed into an Endo Catch bag and pulled out through the umbilicus. The camera was reinserted. The hilum was inspected. The abdomen was copiously irrigated and suctioned until the effluent was clear. There was no evidence of blood or bile leakage in the hilum. Once this was confirmed, the 5 mm trochars were removed under direct laparoscopic visualization. The supraumbilical trocar was removed, and pneumoperitoneum was relieved. The supraumbilical fascia was closed using #1 Ethibond suture in [id number] fashion. 2 separate sutures were used to ensure adequate closure. The overlying skin was closed using 4-0 Vicryl Rapide suture in subcuticular fashion. All sponge, instrument, needle counts were correct x2. Condition: Stable. Korin Landry PA-C was scrubbed and present the entirety of the procedure. She assisted with all portions of the procedure including opening of the skin, entry into the abdomen, placement of the trochars, manipulation of the gallbladder, removal of the gallbladder, closure of the fascia, and closure of the skin.
--- NOTE | 2020-03-01 12:03 | Discharge Summary ---
Discharge Summary (SDC) - Discharge Final Diagnosis: Symptomatic gallstones Date of Surgery: 03/01/20 Discharge Date: 03/01/20 Condition: Stable Treatment or Instructions: Discharge home. Diet as tolerated. Activity: No lifting greater than 10 pounds x 3 to 4 weeks. Follow-up with me in 2 to 3 weeks. Okay to shower starting Sunday. No hot tubs, swimming pools, or bath tubs x2 weeks. Oxycodone 5 mg p.o. every 6 hours as needed for pain. Prescriptions: Oxycodone HCl 5 mg PO Q4HP PRN #14 capsule PRN Reason: For Pain Referrals: SERGIO KIRKLAND, [facility] [Primary Care Provider] - Discharge Diet: As Tolerated Respiratory Treatments at Home: Deep Breathing/Coughing, Incentive Spirometer Discharge Activity: No Lifting Over 10 Pounds, No Lifting/Push/Pulling Home Care Assistance: None Needed Report the Following to Your Physician Immediately: Shortness of Breath, Nausea, Vomiting, Increase in Pain, Yellow Skin, Fever over 101 Degrees, Unusual Bleeding, Warmth, Increased Soreness
[2020-03-01] MEDS ORDERED: OXYCODONE HCL IR 5 MG TABLET ONE (13:10)
[2020-03-01] MEDS ORDERED: OXYCODONE HCL IR 5 MG TABLET PO PRN (13:12)
[2020-03-01] MEDS ORDERED: SUCCINYLCHOLINE CHLORIDE INJ 200 MG/10 ML VIAL ONE (14:15)
[2020-03-01 14:38] VITALS: BP 134/82
== END 2020-03-01 14:15 | disposition home or self-care (01) ==
LOC: OROUT 08:57
PROVIDERS: ATTEND Surgery
DX: K81.1 Chronic cholecystitis (principal); F17.210 Nicotine dependence, cigarettes, uncomplicated; I10 Essential (primary) hypertension; Z87.828 Personal history of other (healed) physical injury and trauma; Z79.899 Other long term (current) drug therapy
CPT/HCPCS: 93005; 86900; 86901; 36415; 86850; 85027; 85610; 85730; 87635; 80053; 88304 ×2; 71046; 93010; 47562; J2250; J1100; J3010; J0330; J2405; J3490 ×2; J7060; J7050; J2704; J1741; J0694; C9803; 790